=== PATIENT | female | born 1990 | race African-American/Black ===

== ENCOUNTER 2017-03-06 12:12 | Emergency (ER) | payer OTHER ==
[2017-03-06 12:26] VITALS: BP 133/68
[2017-03-06] MEDS ORDERED: Fluorescein Sodium TOPICAL* 1 MG TEST OPHTHALMIC ONE (12:41)
[2017-03-06] MEDS ORDERED: Ibuprofen TAB* 600 MG PO ONE (12:43)
[2017-03-06] MEDS ORDERED: Ibuprofen TAB* 600 MG ONE (12:46)
[2017-03-06] MEDS ORDERED: Tetracaine 0.5% OPTH.SOL 15ML* BTL ONE (12:46)
[2017-03-06] MEDS ORDERED: Tetracaine 0.5% OPTH.SOL 4 ML* 1 DROP BTL ONE (12:47)
[2017-03-06] MEDS ORDERED: Tetracaine 0.5% OPTH.SOL 4 ML* 1 DROP BTL RIGHT EYE SCH (13:00)
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
== END 2017-03-06 13:19 | disposition home or self-care (01) ==
LOC: ED 12:12
DX: S05.01XA Injury of conjunctiva and corneal abrasion without foreign body, right eye, initial encounter (principal); W22.8XXA Striking against or struck by other objects, initial encounter; Y92.9 Unspecified place or not applicable
CPT/HCPCS: 99282; A9270-GY

== ENCOUNTER 2017-08-31 12:33 | Emergency (ER) | payer OTHER ==
[2017-08-31 13:14] LABS: ABS Basophils 0 10^3/ul (0-0.2); ABS Eosinophils 0.1 10^3/ul (0-0.6); ABS Lymphocytes 2.7 10^3/ul (1.0-4.8); ABS Monocytes 0.6 10^3/ul (0-0.8); ABS Neutrophils 1.6 10^3/ul (1.5-7.7); ABS Nucleated RBC 0 10^3/ul; Eosinophil % 1.4 % (0-6); Hematocrit 31 % (35-47); Hemoglobin 10.2 g/dl (12.0-16.0); Lymphocyte % 54.8 % (25-47); Mean Corpuscular HGB Conc 33 g/dl (31-36); Mean Corpuscular Hemoglobin 25 pg (27-31); Mean Corpuscular Volume 78 fL (80-97); Mean Platelet Volume 7.2 um3 (7.4-10.4); Nucleated Red Blood Cells % 0.1; Platelet Count 231 10^3/ul (150-450); Red Blood Count 4.01 10^6/ul (4.0-5.4); Red Cell Distribution Width 16 % (10.5-15)
[2017-08-31 13:27] LABS: EGFR Non-African American 76.5 (>60)
[2017-08-31 13:37] LABS: Urine Appearance Cloudy; Urine Blood Negative (Negative); Urine Color Yellow; Urine Ketones Negative (Negative); Urine Protein Negative (Negative); Urine Specific Gravity 1.017 (1.010-1.030); Urine Urobilinogen Negative (Negative)
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
[2017-08-31 22:56] VITALS: BP 115/67
--- NOTE | 2017-09-01 04:42 | ED ---
IJuan Jennifer, scribed for Brayan Jaffe MD on 08/31/17 at 1913 . Progress - Progress Note Progress Note: The patient is a sign out from Dr. Espino pending MHE. Course/Dx - Course Course Of Treatment: The patient was a sign out from Dr. Espino pending MHE. The patient was evaluated and diagnosed with mood disorder and anxiety. Patient will be discharged. - Diagnoses Provider Diagnoses: Mood disorder, Anxiety Discharge - Sign-Out/Discharge Documenting (check all that apply): Discharge/Admit/Transfer - Discharge Plan Condition: Improved Disposition: HOME Prescriptions: hydrOXYzine pamoate [Vistaril] 50 mg PO TID PRN #20 capsule PRN Reason: Anxiety Referrals: Bryan Sanders MD [Primary Care Provider] - The documentation as recorded by the sharonibJuan solares Jennifer accurately reflects the service I personally performed and the decisions made by Ld anne Kirk, MD.
== END 2017-08-31 23:09 | disposition home or self-care (01) ==
LOC: ED 12:33
DX: F41.9 Anxiety disorder, unspecified (principal)
CPT/HCPCS: 36415; 80053; 80307; 80320; 80329; 81003; 84443; 85025; 99284; G0480